=== PATIENT | male | born 1955 | race Asian ===

== ENCOUNTER 2021-11-22 10:39 | Outpatient (CLI) | payer OTHER | END 2021-11-22 10:40 | disposition home or self-care (01) | LOC: BICULT 10:39 | PROVIDERS: ATTEND Urology | DX: N40.1 Benign prostatic hyperplasia with lower urinary tract symptoms (principal); R35.0 Frequency of micturition; Z87.442 Personal history of urinary calculi | CPT/HCPCS: 76770 ==